=== PATIENT | female | born 1945 | race Caucasian/White ===

== ENCOUNTER 2019-04-14 09:25 | Inpatient (IN) ==
[2019-04-08 14:37] LABS: Appearance,Urine CLEAR; Bilirubin,Urine NEG (NEG); Color,Urine STRAW; Glucose,Urine (UA) NEGATIVE (NEG); Ketones,Urine NEG (NEG); Leukocyte Esterase,Urine NEG /uL (NEG); Nitrate,Urine NEG (NEG); Protein,Urine NEG (NEG); Specific Gravity,Urine 1.009 (1.000-1.035); Urine Blood NEG mg/dL (<0.03); Urobilinogen,Urine NEG (NEG)
[2019-04-08 16:01] LABS: Blood Urea Nitrogen 12 mg/dl (8-23); Calcium 9.3 mg/dl (8.6-10.4); Carbon Dioxide 28 mmol/L (22-30); Chloride 97 mmol/L (96-108); Glomerular Filtration Rate 63; Glucose 99 mg/dL (70-105)
[2019-04-08 16:28] LABS: Basophils # (Auto) 0.1 K/mcL (0.0-0.3); Basophils % (Auto) 0.7 % (0.0-2.0); Eosinophils # (Auto) 0.2 K/mcL (0.0-0.7); Eosinophils % (Auto) 2.8 % (0.0-7.0); Granulocytes % (Auto) 47.3 % (38.0-78.0); Hematocrit 43.6 % (36.0-48.0); Hemoglobin 14.4 g/dL (12.0-15.0); Lymphocytes # (Auto) 3.6 K/mcL (1.5-4.8); Lymphocytes % (Auto) 43.4 % (15.5-49.0); Mean Cell Volume 89.8 fL (80.0-100.0); Mean Corpuscular HGB Conc 33.1 g/dL (31.0-36.0); Monocytes # (Auto) 0.5 K/mcL (0.1-0.9); Monocytes % (Auto) 5.8 % (1.0-12.0); Platelet Count 333 K/mcL (140-440); RBC 4.85 M/mcL (4.00-5.20); Red Cell Distribution Width 14.1 % (11.5-14.5); WBC 8.3 K/mcL (4.5-11.0)
[2019-04-08 17:32] LABS: Estimated Average Glucose(eAG) 143 mg/dL; Hemoglobin A1C 6.6 % HGB (4.0-6.0)
[~2019-04-14 09:25] MED LIST: 0.9 % SODIUM CHLORIDE 9 ML, KETOROLAC 30 MG, ROPIVACAINE HCL/PF 49.5 ML, EPINEPHrine 0.... IJ SCH; ACETAMINOPHEN 500 MG TABLET PO SCH; IPRATROPIUM/ALBUTEROL 3 ML AMPUL.NEB NEB PRN; PREGABALIN 75 MG CAPSULE PO SCH; SCOPOLAMINE 1 PATCH PATCH TOPICAL PRN; ceFAZolin 2 GM in DEXTROSE 5% IN WATER 50 ML IV SCH; oxyCODONE 10 MG TAB.ER.12H PO SCH
[2019-04-14] MEDS ORDERED: PHENYLEPHRINE 10 MG/ML VIAL IV ONE (17:05)
[2019-04-14] MEDS ORDERED: SUCCINYLCHOLINE 20 MG/ML ML IV ONE (17:05)
[2019-04-14] MEDS ORDERED: ePHEDrine 50 MG/ML AMPUL IV ONE (17:05)
[2019-04-14] MEDS ORDERED: DEXAMETHASONE 10 MG/ML VIAL IV ONE (17:05)
[2019-04-14] MEDS ORDERED: ONDANSETRON 4 MG/2 ML VIAL IV ONE (17:05)
[2019-04-14] MEDS ORDERED: TRANEXAMIC ACID 1,000 MG/10 ML VIAL IV ONE ×3 (17:05→18:41)
[2019-04-14] MEDS ORDERED: MIDAZOLAM 2 MG/2 ML VIAL IV ONE (17:05)
[2019-04-14] MEDS ORDERED: LIDOCAINE HCL/PF 100 MG/5 ML SYRINGE IV ONE (17:05)
[2019-04-14] MEDS ORDERED: PROPOFOL 200 MG/20 ML VIAL IV ONE (17:05)
[2019-04-14] MEDS ORDERED: GENTAMICIN SULFATE 800 MG/20 ML VIAL IR ONE (17:47)
[2019-04-14] MEDS ORDERED: DEXAMETHASONE 10 MG/ML VIAL IJ ONE (17:48)
[2019-04-14] MEDS ORDERED: TRIAMCINOLONE ACETONIDE 40 MG/ML VIAL INTRAARTIC ONE (17:49)
[2019-04-14] MEDS ORDERED: BUPIVACAINE 0.5% 50 ML VIAL IJ ONE (17:50)
[2019-04-14] MEDS ORDERED: NALOXONE HCL 0.4 MG/ML VIAL IV PRN (18:02)
[2019-04-14] MEDS ORDERED: METHOCARBAMOL 1,000 MG/10 ML VIAL IV PRN (18:02)
[2019-04-14] MEDS ORDERED: HYDROmorphone 2 MG/ML VIAL IV PRN ×2 (18:02→18:29)
[2019-04-14] MEDS ORDERED: FLUMAZENIL 0.1 MG/ML ML IV PRN (18:02)
[2019-04-14] MEDS ORDERED: ATROPINE SULFATE 0.4 MG/ML VIAL IV PRN (18:02)
[2019-04-14] MEDS ORDERED: IPRATROPIUM/ALBUTEROL 3 ML AMPUL.NEB NEB PRN (18:02)
[2019-04-14] MEDS ORDERED: MEPERIDINE 25 MG/ML SYRINGE IV PRN (18:02)
[2019-04-14] MEDS ORDERED: ePHEDrine 50 MG/ML AMPUL IV PRN (18:02)
[2019-04-14] MEDS ORDERED: ONDANSETRON 4 MG/2 ML VIAL IV PRN ×2 (18:02→18:29)
[2019-04-14] MEDS ORDERED: PROMETHAZINE 25 MG/ML VIAL IV PRN (18:02)
[2019-04-14] MEDS ORDERED: diphenhydrAMINE 50 MG/ML VIAL IV PRN (18:02)
[2019-04-14] MEDS ORDERED: METOPROLOL TARTRATE 5 MG/5 ML VIAL IV PRN (18:02)
[2019-04-14] MEDS ORDERED: LACTATED RINGERS 1,000 ML IV SCH (18:15)
[2019-04-14] MEDS ORDERED: TEMAZEPAM 15 MG CAPSULE PO PRN (18:29)
[2019-04-14] MEDS ORDERED: MAGNESIUM HYDROXIDE 30 ML ORAL.SUSP PO PRN (18:29)
[2019-04-14] MEDS ORDERED: POLYETHYLENE GLYCOL 3350 17 GM PACKET PO PRN (18:29)
[2019-04-14] MEDS ORDERED: BENZOCAINE/MENTHOL 1 LOZENGE PO PRN (18:29)
[2019-04-14] MEDS ORDERED: FLEETS ADULT ENEMA PR PRN (18:29)
[2019-04-14] MEDS ORDERED: BISACODYL 10 MG SUPP.RECT PR PRN (18:29)
[2019-04-14] MEDS ORDERED: ACETAMINOPHEN 325 MG TABLET PO PRN (18:29)
--- NOTE | 2019-04-14 18:29 | Brief Operative Note ---
Date of procedure: 04/14/19 Pre-op diagnosis: left knee djd Post-op diagnosis: same Procedure: left abby tka Grafts/Implants: Yes Anesthesia: JOSE Surgeon: Harris Tavares Wire Drawer: Wilder Jewell Estimated blood loss (cc): 20 Tourniquet Time (Minutes): 42 Specimens Removed/Pathology: none sent Condition: stable Disposition: PACU
[2019-04-14] MEDS ORDERED: ALBUTEROL SULFATE 1 PUFF INHALER INH PRN (18:31)
[2019-04-14] MEDS: fentaNYL 100 MCG/2 ML VIAL IV PRN ×4 (19:28→19:38)
[2019-04-14] MEDS ORDERED: fentaNYL 100 MCG/2 ML VIAL IV ONE (19:29)
[2019-04-14] MEDS: LACTATED RINGERS 1,000 ML IV SCH (19:59)
[2019-04-14] MEDS: HYDROcodone/APAP 10/325MG TABLET PO PRN (20:39)
[2019-04-14] MEDS: GABAPENTIN 300 MG CAPSULE PO SCH (21:56)
[2019-04-14] MEDS: ASPIRIN 325 MG ENTERIC COATED TABLET PO SCH (21:56)
[2019-04-14] MEDS: SENNOSIDES 1 TABLET PO SCH (21:57)
[2019-04-14] MEDS: DOCUSATE SODIUM 100 MG CAPSULE PO SCH (21:57)
[2019-04-14] MEDS: 0.9 % SODIUM CHLORIDE 10 ML SYRINGE IV SCH (21:58)
[2019-04-15] MEDS: ceFAZolin 1 GM VIAL IV SCH ×2 (00:21→08:45)
[2019-04-15] MEDS: KETOROLAC 15 MG/ML VIAL IV SCH ×5 (00:22→23:52)
[2019-04-15] MEDS: HYDROcodone/APAP 10/325MG TABLET PO PRN ×4 (00:28→19:32)
--- NOTE | 2019-04-15 04:31 | XRay Report ---
CLINICAL INFORMATION: Post-Op Total Knee COMPARISON: None. FINDINGS: Total knee prostheses is anatomically aligned. No osseous abnormality. Periarticular gas and soft tissue swelling seen as expected IMPRESSION: Negative Interpreted and Authenticated by: Austin Núñez 04/15/19
[2019-04-15] MEDS: LACTATED RINGERS 1,000 ML IV SCH ×2 (05:59→14:53)
[2019-04-15] MEDS: 0.9 % SODIUM CHLORIDE 10 ML SYRINGE IV SCH ×3 (06:01→20:35)
--- NOTE | 2019-04-15 07:36 | Operative Note ---
DATE OF OPERATION: 04/14/2019 PREOPERATIVE DIAGNOSIS: Left knee degenerative arthritis. POSTOPERATIVE DIAGNOSIS: Left knee degenerative arthritis. PROCEDURE: Left total knee arthroplasty. SURGEON: Harris Tavares MD WEB DEVELOPMENT INTERN: Wilder Jewell PA-C. This provider's expertise and technical skill were required throughout the case. The PA assisted with preoperative coordination, intraoperative retraction, wound closure, dressing and splint application, as well as postoperative documentation and care coordination. COMPLICATIONS: None. TOTAL TOURNIQUET TIME: 42 minutes. ANESTHESIA: General LMA anesthesia. IMPLANTS: Brenda robotic total knee implants. DESCRIPTION OF PROCEDURE: The patient was brought to the operating room, put to sleep with general LMA anesthesia. Once asleep, the patient had the left knee sterilely prepped and draped in the usual sterile fashion. A timeout was performed. We confirmed this as the operative site by initials, consent form and x-rays. Ioban was placed over the skin. A midline incision was made and a mid vastus approach performed. We placed pins above and below the knee and then registered the center of hip rotation, registered medial and lateral malleoli, registered 30 points in the femur and 30 points on the tibia, balanced the knee at 90 and 15 degrees. Once we adjusted the implant position to match her anatomy, we were able to bring in the robot and made the bony cuts. Once the bone was removed, osteophytes removed and the remnants of the meniscus were removed, we then tapped into place the components that had been preoperatively planned. The 9 mm insert was placed. This seemed to make excellent position. We checked position. This brought her back to a negative 1 degree of extension with full range of motion. We irrigated thoroughly and preserved the posterior cruciate ligament. We prepared the patella measuring 21 mm. This was cut to 13 mm and then we implanted a 33 mm patellar button that covered the patella very nicely. All these components were then cemented into place. We kept the knee at 45 degrees until all cement was dry. We then reinspected the knee, took the knee through range of motion, which was very stable equally tensioned throughout the arc of motion. We irrigated once more and then closed the mid vastus approach with #1 Stratafix x2 sutures. We closed the skin with a Monocryl and adhesive closure. Sterile bandage applied. Tourniquet time 42 minutes. VASILIY:giulia Job ID: [id number] Doc ID: [id number] Harris Tavares MD
[2019-04-15] MEDS: PANTOPRAZOLE 40 MG TABLET PO SCH (07:42)
--- NOTE | 2019-04-15 07:49 | Orthopedic Progress Note ---
Subjective Patient information: Note initiated : 04/15/19 at 7:47 am Service Date, if different from initiated Date: [] Patient: Gracy Meyer 73 y/o F admitted on 04/14/19 for Left Total Knee Arthroplasty Cameron. Chief Complaint: [Left knee and is minimal pain and is eating well] Objective Vital signs: Vital Signs Temp Pulse Pulse Resp BP BP Pulse Ox 04/15/19 03:15 97.8 F 109 H 16 117/66 91 04/14/19 23:47 97.4 F 109 H 12 117/66 93 04/14/19 22:16 103 H 18 93 04/14/19 21:47 98 H 128/74 94 04/14/19 21:17 98 H 134/80 95 04/14/19 20:47 92 H 122/67 94 04/14/19 20:32 88 134/76 96 04/14/19 20:17 89 113/63 91 04/14/19 20:03 90 125/67 98 04/14/19 20:00 20 04/14/19 19:47 96.2 F L 89 20 138/79 96 04/14/19 19:40 98 F 88 14 145/70 100 04/14/19 19:35 98 F 90 15 150/68 100 04/14/19 19:20 98 F 93 H 13 151/69 100 04/14/19 19:15 94 H 16 143/59 98 04/14/19 19:10 96 H 15 137/70 98 04/14/19 19:05 98.4 F 100 H 16 141/95 97 04/14/19 11:00 97.3 F 86 18 153/86 97 Intake and Output 04/14/19 04/15/19 04/15/19 21:59 05:59 13:59 Intake Total 1900 1550 60 Output Total 50 700 Balance 1850 850 60 Intake: IV 1000 Lactated Ringers 1,000 ml @ 100 1000 mls/hr IV .Q10H ASAD Rx#: [id number] Oral 550 60 IV - Manual Only 1900 Output: Void Amount 700 Estimated Blood Loss 50 Other: Meal Egg salad sandwich Percent of Meal Consumed 100% Feeding Ability Independent Urine Appearance Clear Urine Color Bright Yellow Urine Odor Normal Weight 197 lb Intake & Output: Intake & Output 04/14/19 04/15/19 04/15/19 21:59 05:59 13:59 Intake Total 1900 1550 60 Output Total 50 700 Balance 1850 850 60 Weight 197 lb Intake: IV 1000 Lactated Ringers 1,000 ml @ 100 1000 mls/hr IV .Q10H ASAD Rx#: [id number] Oral 550 60 IV - Manual Only 1900 Output: Void Amount 700 Estimated Blood Loss 50 Other: Meal Egg salad sandwich Percent of Meal Consumed 100% Feeding Ability Independent Urine Appearance Clear Urine Color Bright Yellow Urine Odor Normal Incision: Yes healing Incision clean and dry: Yes Dressing: Yes clean Weight bearing status: full Neurological exam IM: Yes oriented X3, Yes neurovascular intact Extremities exam IM: Yes Foot pink and warm (dc home tomorrow), Yes neurovascular intact - Labs CBC & BMP: 04/08/19 13:40 04/08/19 13:39 Labs: 04/15/19 04/08/19 05:01 13:40 Hgb 14.4 Hct Pending 43.6
[2019-04-15] MEDS: FERROUS SULFATE 325 MG TABLET PO SCH ×2 (07:57→17:44)
[2019-04-15] MEDS: metFORMIN 500 MG TABLET PO SCH (07:57)
--- NOTE | 2019-04-15 08:09 | Discharge Summary ---
Ortho Discharge - TKA - Patient Instructions Diet: Regular Diet Activity: activity as tolerated, weight bearing as tolerated Total Knee Protocol: For Total Knee: Start ROM MATTHIAS with stationary bike or rocking chair. Work on gaining full extension of knee. Posterior dislocation precautions provided. Hip abductor strengthening and gait training instructions provided. Apply Cryocuff as instructed. Dressing Care: May shower in 2 days - Follow Up Plan Disposition: Home, Self-Care Prognosis: Good Rehab Potential: Good I certify that the patient requires SNF services: Yes (pain and remote living) Overall status at discharge: patient is not back to baseline - Orders For Discharge Prescriptions: HYDROcodone/APAP 10/325MG [[place] 10-325Mg] 10 - 20 mg PO Q4HP PRN #60 tab PRN Reason: Pain Level 3-6 Prescription Printed Additional Discharge Orders: Physical Therapy at Discharge - TKA Location: None Selected CPM Discharge Order Location: None Selected Toilet Riser Discharge Order Location: None Selected Walker Location: None Selected
[2019-04-15] MEDS: DOCUSATE SODIUM 100 MG CAPSULE PO SCH ×2 (08:43→20:35)
[2019-04-15] MEDS: DULoxetine 30 MG CAPSULE PO SCH (08:43)
[2019-04-15] MEDS: LOSARTAN 50 MG TABLET PO SCH (08:43)
[2019-04-15] MEDS: HYDROCHLOROTHIAZIDE 12.5 MG CAPSULE PO SCH (08:44)
[2019-04-15] MEDS: MAGNESIUM OXIDE 400 MG TABLET PO SCH (08:44)
[2019-04-15] MEDS: VITAMIN D3 1,000 UNIT TABLET PO SCH (08:44)
[2019-04-15] MEDS: ASPIRIN 325 MG ENTERIC COATED TABLET PO SCH ×2 (08:44→20:35)
[2019-04-15] MEDS: CALCIUM W/VIT D3 500 MG TABLET PO SCH (08:46)
[2019-04-15] MEDS ORDERED: LOSARTAN/HCTZ 50/12.5 TABLET PO SCH (09:00)
[2019-04-15] MEDS: GABAPENTIN 300 MG CAPSULE PO SCH (20:35)
[2019-04-15] MEDS: SENNOSIDES 1 TABLET PO SCH (20:35)
[2019-04-16] MEDS: LACTATED RINGERS 1,000 ML IV SCH (01:35)
[2019-04-16] MEDS: HYDROcodone/APAP 10/325MG TABLET PO PRN (05:04)
[2019-04-16] MEDS: KETOROLAC 15 MG/ML VIAL IV SCH (05:11)
[2019-04-16] MEDS: 0.9 % SODIUM CHLORIDE 10 ML SYRINGE IV SCH (05:15)
[2019-04-16] MEDS: PANTOPRAZOLE 40 MG TABLET PO SCH (07:02)
[2019-04-16] MEDS: metFORMIN 500 MG TABLET PO SCH (07:51)
[2019-04-16] MEDS: FERROUS SULFATE 325 MG TABLET PO SCH (07:52)
[2019-04-16] MEDS: DULoxetine 30 MG CAPSULE PO SCH (09:19)
[2019-04-16] MEDS: DOCUSATE SODIUM 100 MG CAPSULE PO SCH (09:19)
[2019-04-16] MEDS: MAGNESIUM OXIDE 400 MG TABLET PO SCH (09:19)
[2019-04-16] MEDS: LOSARTAN 50 MG TABLET PO SCH (09:19)
[2019-04-16] MEDS: HYDROCHLOROTHIAZIDE 12.5 MG CAPSULE PO SCH (09:19)
[2019-04-16] MEDS: CALCIUM W/VIT D3 500 MG TABLET PO SCH (09:19)
[2019-04-16] MEDS: VITAMIN D3 1,000 UNIT TABLET PO SCH (09:20)
[2019-04-16] MEDS: ASPIRIN 325 MG ENTERIC COATED TABLET PO SCH (09:20)
== END 2019-04-16 11:40 | disposition home or self-care (01) | DRG 470 ==
LOC: MEDSUR 10:33
PROVIDERS: ADMIT Orthopaedic Surgery; ATTEND Orthopaedic Surgery